=== PATIENT | female | born 1975 | race Hispanic/Latino ===

== ENCOUNTER → 2025-03-05 | Outpatient (CLI) | payer OTHER ==
--- NOTE | 2025-03-05 14:09 | HMCIMG ---
CT HEART SAVER PROMOTIONAL HISTORY: Cardiac calcification scoring. FINDINGS: The cardiac calcification scoring is 0. Limited examination of the heart was performed. The study is done for additional or incidental findings. IMPRESSION: No additional findings.
== END | disposition home or self-care (01) ==
LOC: RAH 13:17
PROVIDERS: ATTEND Internal Medicine
DX: Z13.6 Encounter for screening for cardiovascular disorders (principal)
CPT/HCPCS: 75571